=== PATIENT | female | born 1965 | race Two or more races ===

== ENCOUNTER → 2017-12-03 | Outpatient (CLI) | payer OTHER ==
--- NOTE | 2017-12-04 08:32 | MM ---
Reason for exam: screening (asymptomatic). Last mammogram was performed 8 years ago. History: Benign ultrasound-guided core biopsy of the left breast, January 09, 2008. Excisional biopsy of the left breast, December 2007. Physical Findings: A clinical breast exam by your physician is recommended on an annual basis and results should be correlated with mammographic findings. MG Screening Mammo w CAD Bilateral CC and MLO view(s) were taken. Prior study comparison: December 06, 2009, bilateral diagnostic digital mammog. June 01, 2008, bilateral diagnostic digital mammog. The breast tissue is heterogeneously dense. This may lower the sensitivity of mammography. Finding #1: There is a 8 mm equal density (isodense), oval mass in the upper outer quadrant of the right breast. Finding #2: There are calcifications in the left breast. ASSESSMENT: Incomplete: need additional imaging evaluation, BI-RAD 0 RECOMMENDATION: Special view mammogram of the right breast. If lesion persists on supplemental views, image directed ultrasound is recommended. [facility] will attempt to contact patient to return for supplemental views and ultrasound if indicated.
== END | disposition home or self-care (01) ==
LOC: RADMAMWWP 16:37
PROVIDERS: ATTEND Family Medicine
DX: Z12.31 Encounter for screening mammogram for malignant neoplasm of breast (principal)
CPT/HCPCS: 77067

== ENCOUNTER → 2017-12-11 | Outpatient (CLI) | payer OTHER ==
--- NOTE | 2017-12-11 13:53 | MM ---
Reason for exam: additional evaluation requested from abnormal screening. Last mammogram was performed less than 1 month ago. History: Patient is postmenopausal. Benign ultrasound-guided core biopsy of the left breast, January 09, 2008. Excisional biopsy of the left breast, December 2007. Physical Findings: Nurse did not find any significant physical abnormalities on exam. MG Work Up Mamm w CAD RT CC and MLO view(s) were taken of the right breast. Prior study comparison: December 03, 2017, bilateral MG screening mammo w CAD. December 06, 2009, bilateral diagnostic digital mammog. The breast tissue is heterogeneously dense. This may lower the sensitivity of mammography. Ovoid asymmetry posterior superior right breast appears to have been present back to 2007. Not clearly seen on CC view, less defined on LM view. 6 month follow up recommended as a precautionary measure. These results were verbally communicated with the patient and result sheet given to the patient on 12/11/17. ASSESSMENT: Probably benign, BI-RAD 3 RECOMMENDATION: Follow-up diagnostic mammogram of the right breast in 6 months. MONICA
== END | disposition home or self-care (01) ==
LOC: RADMAMWWP 13:08
PROVIDERS: ATTEND Family Medicine
DX: R92.8 Other abnormal and inconclusive findings on diagnostic imaging of breast (principal)
CPT/HCPCS: 77065

== ENCOUNTER → 2018-10-21 | Outpatient (CLI) | payer OTHER ==
--- NOTE | 2018-10-21 16:02 | XR ---
EXAMINATION TYPE: XR knee limited LT DATE OF EXAM: 10/21/2018 CLINICAL HISTORY: pain TECHNIQUE: Three views of the left knee are obtained. COMPARISON: None. FINDINGS: There is no acute fracture/dislocation. The tri-compartment joint spaces appear within no rmal limits. The overlying soft tissue appears unremarkable. IMPRESSION: There is no acute fracture or dislocation ICD 10 NO FRACTURE, INITIAL EVALUATION
== END ==
LOC: RADXRMAIN 15:27
PROVIDERS: ATTEND Family Medicine
DX: M25.562 Pain in left knee (principal)

== ENCOUNTER → 2021-10-16 | Outpatient (CLI) | payer OTHER ==
--- NOTE | 2021-10-16 10:49 | MM ---
Reason for exam: clinical finding. Last mammogram was performed 1 year and 11 months ago. History: Patient is postmenopausal. Benign ultrasound-guided core biopsy of the left breast, January 09, 2008. Excisional biopsy of the left breast, December 2007. Indicated problem(s): pain in the right breast. Physical Findings: A clinical breast exam by your physician is recommended on an annual basis and results should be correlated with mammographic findings. MG Diagnostic Mammo w CAD [facility] Bilateral CC and MLO view(s) were taken. Prior study comparison: November 03, 2019, bilateral MG diagnostic mammo w CAD ASHLEY. December 11, 2017, right breast MG work up mamm w CAD RT. The breast tissue is heterogeneously dense. This may lower the sensitivity of mammography. No significant new findings when compared with previous films. These results were verbally communicated with the patient and result sheet given to the patient on 10/16/21. ASSESSMENT: Benign, BI-RAD 2 RECOMMENDATION: Routine screening mammogram of both breasts in 1 year.
--- NOTE | 2021-10-16 10:50 | USB ---
Reason for exam: clinical finding. History: Patient is postmenopausal. Benign ultrasound-guided core biopsy of the left breast, January 09, 2008. Excisional biopsy of the left breast, December 2007. US Breast RT Technologist: Lea Casillas Right complete breast ultrasound includes all four quadrants, the retroareolar region and axilla. Finding demonstrates a 0.4 x 0.5 x 0.3cm cystic lesion at 12 o'clock and a 0.5 x 0.5 x 0.3cm oval, cystic lesion at 8 o'clock. These results were verbally communicated with the patient and result sheet given to the patient on 10/16/21. ASSESSMENT: Probably benign, BI-RAD 3 RECOMMENDATION: Ultrasound of the right breast in 6 months.
== END | disposition home or self-care (01) ==
LOC: RADMAMWWP 09:34
PROVIDERS: ATTEND Family Medicine
DX: N64.4 Mastodynia (principal)
CPT/HCPCS: 77066

== ENCOUNTER → 2023-02-08 | Outpatient (CLI) | payer OTHER | END | disposition home or self-care (01) | LOC: RADMRIMAIN 11:43 | PROVIDERS: ATTEND Orthopaedic Surgery | DX: Z53.9 Procedure and treatment not carried out, unspecified reason (principal) ==

== ENCOUNTER → 2023-03-20 | Outpatient (CLI) | payer OTHER | END | disposition home or self-care (01) | LOC: RADMRIMAIN 17:12 | PROVIDERS: ATTEND Orthopaedic Surgery | DX: Z53.9 Procedure and treatment not carried out, unspecified reason (principal) ==